=== PATIENT | male | born 1980 | race Hispanic/Latino ===

== ENCOUNTER → 2017-11-21 | Outpatient (CLI) | payer MEDICARE, OTHER | END | disposition home or self-care (01) | LOC: RAH 12:38 | PROVIDERS: ATTEND Urology | DX: N31.9 Neuromuscular dysfunction of bladder, unspecified (principal) | CPT/HCPCS: 76770 ==

== ENCOUNTER 2018-09-05 16:07 | Inpatient (IN) | payer MEDICARE ==
[~2018-09-05] VITALS: Ht 165.1 cm; Wt 95.0 kg
[2018-09-05 17:45] LABS: BASOPHILS % (AUTO) 0.7 % (0.0-5.0); EOSINOPHILS % (AUTO) 0.5 % (0.0-8.0); HEMATOCRIT 30.2 % (42-54); LYMPHOCYTES % (AUTO) 14.5 % (21.0-51.0); MEAN CORPUSCULAR HEMOGLOBIN 29.9 pg (27.0-33.0); MEAN CORPUSCULAR HGB CONC 34.2 g/dL (32.0-36.0); MEAN CORPUSCULAR VOLUME 87.4 fL (79-99); MONOCYTES % (AUTO) 9.2 % (3.0-13.0); NEUTROPHILS % (AUTO) 75.1 % (40.0-77.0); NUCLEATED RED BLOOD CELLS 0.1 % (0.0-0.19); PLATELET COUNT (AUTO) 222 K/uL (130-400); RED BLOOD CELL COUNT(AUTO) 3.45 MIL/uL (4.50-6.20); RED CELL DISTRIBUTION WIDTH 13.6 % (11.0-15.5); WHITE BLOOD COUNT (AUTO) 12.2 K/uL (4.8-10.8)
[2018-09-05 17:48] LABS: APPEARANCE,URINE Turbid (CLEAR); BILIRUBIN,URINE Negative (NEGATIVE); COLOR,URINE Yellow (YELLOW); GLUCOSE, URINE (UA) Negative (NEGATIVE); KETONES,URINE Trace mg/dL (NEGATIVE); LEUKOCYTE ESTERASE ,URINE Large (NEGATIVE); NITRATE,URINE Positive (NEGATIVE); OCCULT BLOOD,URINE Negative (NEGATIVE); PH,URINE >=9.0 (5.0-8.0); PROTEIN,URINE POS 1+ mg/dL (NEGATIVE)
[2018-09-05 17:52] LABS: CREATININE 0.8 mg/dL (0.5-1.5); POTASSIUM 3.6 mmol/L (3.5-5.1)
[2018-09-05 17:56] LABS: ALBUMIN 3.4 g/dL (3.5-5.0); BILIRUBIN,DIRECT 0.2 mg/dL (0.0-0.3); BILIRUBIN,TOTAL 0.6 mg/dL (0.2-1.0); TOTAL PROTEIN, SERUM 6.8 g/dL (6.0-8.3)
[2018-09-05] MEDS ORDERED: MORPHINE SULFATE 4 MG/1ML SYG IVP PRN (18:00)
[2018-09-05] MEDS ORDERED: ONDANSETRON HCL 4 MG/2 ML VIAL IVP PRN (18:00)
[2018-09-05] MEDS ORDERED: MORPHINE SULFATE 4 MG/1ML SYG ONE (18:01)
[2018-09-05] MEDS ORDERED: ONDANSETRON HCL 4 MG/2 ML VIAL ONE (18:01)
[2018-09-05 18:05] LABS: BACTERIA,URINE Many /HPF (None Seen); RBC,URINE None Seen /HPF (0-1); SQUAMOUS EPITHELIAL CELL,UR None Seen /HPF (0-2); TRIPLE PHOSPHATE CRYSTAL,UR Many /LPF (None Seen)
[2018-09-05] MEDS ORDERED: NITROGLYCERIN 0.4 MG SL TAB SL PRN (18:30)
[2018-09-05] MEDS ORDERED: ONDANSETRON HCL 4 MG/2 ML VIAL IV PRN (18:30)
[2018-09-05] MEDS ORDERED: ACETAMINOPHEN 325 MG TAB PO PRN ×2 (18:30)
[2018-09-05] MEDS ORDERED: SODIUM CHLORIDE 0.9% 1000ML 1,000 ML IV SCH (18:30)
[2018-09-05 19:02] LABS: B-TYPE NATRIURETIC PEPTIDE < 5 pg/mL (0-100); INR 0.9 (0.85-1.15); PROTHROMBIN TIME 9.5 SEC (9.6-11.6)
[2018-09-05 19:27] LABS: AMPHET/METH SCREEN,URINE NEGATIVE (NEGATIVE); BARBITURATE SCREEN, URINE NEGATIVE (NEGATIVE); BENZODIAZEPINES SCREEN,URINE NEGATIVE (NEGATIVE); CANNABINOID SCREEN,URINE NEGATIVE (NEGATIVE); COCAINE SCREEN,URINE NEGATIVE (NEGATIVE); OPIATE SCREEN,URINE NEGATIVE (NEGATIVE); PHENCYCLIDINE SCREEN,URINE NEGATIVE (NEGATIVE)
[2018-09-05 19:34] LABS: CRP QUANTITATIVE 233.5 mg/L (0.00-9.0); MAGNESIUM 1.8 mg/dL (1.80-2.40)
[2018-09-05] MEDS ORDERED: LEVOFLOXACIN 500 MG/D5W 100 ML 100 ML ONE (19:43)
[2018-09-05] MEDS ORDERED: SODIUM CHLORIDE 0.9% 1000ML 2,000 ML IV ONE (19:43)
[2018-09-05 20:45] VITALS: BP 117/64
--- NOTE | 2018-09-05 20:45 | NUR ---
ADMISSION. PT ADMITTED INTO ROOM 403, TRANSFERRED VIA STRETCHER. AWAKE, ALERT AND RESPONSIVE. C/O DISCOMFORT TO LT LEG BUT REFUSING PAIN MEDICATION AT THIS TIME. INFORMED PT ON PAIN MEDICATION ORDERS AND EDUCATED ON PAIN MANAGEMENT. CALL MUNOZ WITHIN REACH, BED IN LOWEST POSITION. Addendum: 09/05/18 at 2143 by MANNY FRANCO RN Amended: Links added.
[2018-09-05] MEDS ORDERED: LACT1CAP65 PO (21:49)
[2018-09-05] MEDS ORDERED: ASPI-555 PO (21:49)
[2018-09-05] MEDS ORDERED: ZOLP10TA2 PO (21:49)
[2018-09-05] MEDS ORDERED: FISH1CAP63 PO (21:49)
[2018-09-05] MEDS ORDERED: HYDR-4068 PO (21:49)
[2018-09-05] MEDS: SODIUM CHLORIDE 0.9% 1000ML 1,000 ML IV SCH (21:51)
[2018-09-05] MEDS: LEVOFLOXACIN 500 MG/D5W 100 ML 100 ML IV SCH (21:52)
[2018-09-05] MEDS: FAMOTIDINE 20MG TAB 20 MG TAB PO SCH (21:53)
[2018-09-05] MEDS: ZOLPIDEM TARTRATE 5 MG TAB PO PRN (21:53)
[2018-09-05] MEDS: MORPHINE SULFATE 2 MG/ML 1ML SYG IV PRN (22:24)
[2018-09-06] VITALS (7 sets, daily range): BP systolic 95–124; BP diastolic 49–65
[2018-09-06] MEDS: KETOROLAC TROMETHAMINE 15MG/ML IV PRN ×3 (00:41→20:46)
[2018-09-06] MEDS: MORPHINE SULFATE 2 MG/ML 1ML SYG IV PRN ×4 (03:21→23:15)
[2018-09-06] MEDS: SODIUM CHLORIDE 0.9% 1000ML 1,000 ML IV SCH (04:30)
[2018-09-06 04:40] LABS: HEMATOCRIT 26.6 % (42-54); MEAN CORPUSCULAR HEMOGLOBIN 30.7 pg (27.0-33.0); MEAN CORPUSCULAR HGB CONC 35.1 g/dL (32.0-36.0); MEAN CORPUSCULAR VOLUME 87.5 fL (79-99); PLATELET COUNT (AUTO) 202 K/uL (130-400); RED BLOOD CELL COUNT(AUTO) 3.04 MIL/uL (4.50-6.20); RED CELL DISTRIBUTION WIDTH 13.9 % (11.0-15.5); WHITE BLOOD COUNT (AUTO) 10.7 K/uL (4.8-10.8)
[2018-09-06 04:50] LABS: CREATININE 0.7 mg/dL (0.5-1.5); POTASSIUM 3.6 mmol/L (3.5-5.1)
[2018-09-06 04:52] LABS: BAND NEUTROPHILS % (MANUAL) 3 % (0-2); LYMPHOCYTES % (MANUAL) 42 % (22-44); MAN.DIFF COMMENT-IMPRESSION MANUAL DIFFERENTIAL; MONOCYTES % (MANUAL) 8 % (2-9); PLATELET MORPHOLOGY COMMENT ADEQUATE; SEGMENTED NEUTROPHILS % 47 % (40-70)
[2018-09-06] MEDS: FAMOTIDINE 20MG TAB 20 MG TAB PO SCH ×2 (07:48→20:47)
[2018-09-06] MEDS: ENOXAPARIN SODIUM 40 MG/0.4 ML SYRINGE SQ SCH (08:03)
--- NOTE | 2018-09-06 08:38 | NUR ---
SPECIALY HAS BEEN ORDERED HOUSE SUP AWARE PT AWARE
--- NOTE | 2018-09-06 14:00 | NUR ---
DR. QUINTANA ROUNDED ON PT SCHEDULE FOR SX TOMORROW NPO AFTER MIDNIGHT AWARE PT HAS BEEN CLEARED BY HOSPITALIST GROUP
--- NOTE | 2018-09-06 17:45 | NUR ---
PT AWARE SPECIALTY BED ARRIVED BUT REFUSES TO BE TRANSFERRED TO SUCH BED DOESTN WANT TO BE BOTHER AT THE MOMENT
--- NOTE | 2018-09-06 18:00 | NUR ---
INITIAL: Met with pt this afternoon to discuss dcp. Pt states that he lives w his mom. Prior to admission was independent w transfers to . He mentions that he requires assistance w ADLs. Has provider services 26hr/week. Pt mentions that he has at home a hospital bed and air mattress. Pt mentions that he anticipates needing rehab post op and is interested [facility]. Discussed also SNF as an option. Per pt he will discuss further w Md post op. Cm to continue to follow and wait for Md recommendations. Addendum: 09/06/18 at 1803 by DARLIN ROMANO Amended: Links added.
[2018-09-06] MEDS: LEVOFLOXACIN 500 MG/D5W 100 ML 100 ML IV SCH (19:55)
[2018-09-06] MEDS: ZOLPIDEM TARTRATE 5 MG TAB PO PRN (23:14)
[2018-09-07] VITALS (22 sets, daily range): BP systolic 89–176; BP diastolic 46–74
[2018-09-07] MEDS: SODIUM CHLORIDE 0.9% 1000ML 1,000 ML IV SCH ×4 (01:26→20:54)
[2018-09-07 05:15] LABS: HEMATOCRIT 25.4 % (42-54); MEAN CORPUSCULAR HEMOGLOBIN 30.4 pg (27.0-33.0); MEAN CORPUSCULAR VOLUME 87.1 fL (79-99); PLATELET COUNT (AUTO) 229 K/uL (130-400); RED BLOOD CELL COUNT(AUTO) 2.92 MIL/uL (4.50-6.20); RED CELL DISTRIBUTION WIDTH 13.7 % (11.0-15.5); WHITE BLOOD COUNT (AUTO) 8.4 K/uL (4.8-10.8)
[2018-09-07 05:21] LABS: CREATININE 0.7 mg/dL (0.5-1.5); POTASSIUM 3.7 mmol/L (3.5-5.1)
[2018-09-07] MEDS ORDERED: DEXAMETHASONE SOD PHOSPHATE 10MG/ML 1ML VIAL ONE (07:55)
[2018-09-07] MEDS ORDERED: SUCCINYLCHOLINE 200MG/10ML SYR ONE (07:55)
[2018-09-07] MEDS ORDERED: LIDOCAINE PF 2% 5ML ABBOJECT ONE (07:55)
[2018-09-07] MEDS ORDERED: ONDANSETRON HCL 4 MG/2 ML VIAL ONE (07:55)
[2018-09-07] MEDS ORDERED: MIDAZOLAM HCL 1 MG/ML 2ML VIAL ONE ×2 (07:56→09:08)
[2018-09-07] MEDS ORDERED: NEOSTIGMINE 5MG/5ML SYR IV ONE ×2 (07:56→10:49)
[2018-09-07] MEDS ORDERED: FENTANYL CITRATE PF 50 MCG/1 ML 2ML VIAL ONE ×2 (07:56→08:10)
[2018-09-07] MEDS ORDERED: PROPOFOL 10 MG/ML 20ML VIAL IV ONE (07:56)
[2018-09-07] MEDS ORDERED: GLYCOPYRROLATE 1 MG/5 ML SYRINGE ONE ×3 (07:56→10:49)
[2018-09-07] MEDS ORDERED: ROCURONIUM 10MG/1ML SYR 10 MG/ML ML ONE (07:56)
--- NOTE | 2018-09-07 08:05 | NUR ---
PATIENT TO OR PATIENT TRANSFERRED TO OR FOR SCHEDULED PROCEDURE VIA STRETCHER.
[2018-09-07] MEDS ORDERED: LACTATED RINGERS 1000ML 1,000 ML IV ONE (08:09)
[2018-09-07] MEDS: ENOXAPARIN SODIUM 40 MG/0.4 ML SYRINGE SQ SCH (09:00)
[2018-09-07] MEDS: FAMOTIDINE 20MG TAB 20 MG TAB PO SCH ×2 (09:00→19:55)
[2018-09-07] MEDS: ASPIRIN 81 MG EC TAB PO SCH (09:00)
[2018-09-07] MEDS ORDERED: EPHEDRINE SULFATE 50 MG/ML AMPULE ONE (09:41)
[2018-09-07] MEDS ORDERED: CEFAZOLIN SODIUM 1 GM VIAL ONE (09:44)
[2018-09-07] MEDS ORDERED: TRANEXAMIC ACID 1000MG/10ML IV ONE (10:37)
[2018-09-07] MEDS ORDERED: DIPHENHYDRAMINE HCL 25 MG CAPSULE PO PRN (11:00)
[2018-09-07] MEDS ORDERED: LIDOCAINE HCL-MPF 1% 2ML VIAL IVP PRN (11:00)
[2018-09-07] MEDS ORDERED: POTASSIUM CHLORIDE 10% ELIXIR 20 MEQ/15 ML UDCUP PO PRN (11:00)
[2018-09-07] MEDS ORDERED: FERROUS FUMARATE 324 MG TABLET PO PRN (11:00)
[2018-09-07] MEDS ORDERED: CALCIUM CARBONATE 500 MG TABLET PO PRN (11:00)
[2018-09-07] MEDS: ACETAMINOPHEN EXTRA STRENGTH 500 MG TABLET PO SCH ×2 (11:00→19:55)
[2018-09-07] MEDS ORDERED: DiphenhydrAMINE HCL 50 MG/ML VIAL IVP PRN (11:00)
[2018-09-07] MEDS ORDERED: POTASSIUM CHLORIDE 20MEQ/100ML 100 ML IV PRN (11:00)
[2018-09-07] MEDS ORDERED: POTASSIUM CHLORIDE 20 MEQ ERTAB PO PRN (11:00)
[2018-09-07] MEDS ORDERED: HYDROMORPHONE 1 MG/1 ML AMP ONE (11:33)
[2018-09-07] MEDS: PSYLLIUM SEED 1 EACH PACKET PO SCH (12:00)
[2018-09-07 12:03] LABS: HEMATOCRIT 23.2 % (42-54)
[2018-09-07] MEDS: CLINDAMYCIN 600 MG/D5% WATER 50 ML IV SCH ×2 (12:50→19:55)
[2018-09-07] MEDS: MORPHINE SULFATE 2 MG/ML 1ML SYG IV PRN ×2 (12:50→16:47)
[2018-09-07] MEDS ORDERED: CLINDAMYCIN 600 MG/D5% WATER 50 ML IV ONE (19:45)
[2018-09-07] MEDS: LEVOFLOXACIN 500 MG/D5W 100 ML 100 ML IV SCH (19:55)
--- NOTE | 2018-09-07 20:00 | NUR ---
post blood transfusion Patient completed blood transfusion, no adverse reactions noted. Vitals stable. Afebrile. Tolerated blood transfusion well. Resp even and unlabored. No SOB noted. No nausea or vomiting noted. Medicated as per [place] for complaints of upper shoulder pain. Patient states it is chronic. Patient wanting Morphine but at this time Dressing to left hip dry and intact. No complaints of dysuria voiced at this time. Lutz catheter patent draining cloudy yellow urine to BSD. No signs of distress noted at this time. Patient on a specialty bed. Side rails up x3. Call light within reach. Will continue to be observed. Addendum: 09/07/18 at 2121 by CRISTINE DONALD RN RN Amended: Links added.
[2018-09-07] MEDS: KETOROLAC TROMETHAMINE 15MG/ML IV PRN (20:29)
[2018-09-07] MEDS: ZOLPIDEM TARTRATE 5 MG TAB PO PRN (23:53)
--- NOTE | 2018-09-08 | NUR ---
ROUNDS PATIENT AWAKE AND ALERT. NO COMPLAINTS OF PAIN VOICED AT THIS TIME. VITALS STABLE. AFEBRILE. TOLERATING IVF WELL. NO NAUSEA OR VOMITING NOTED. MEDICATED FOR INSOMNIA WITH AMBIEN 10MG PO. RESP EVEN AND UNLABORED. NO SOB NOTED. REPOSITIONED FOR COMFORT. SIDE RAILS UP X3. NO SIGNS OF DISTRESS NOTED. CALL LIGHT WITHIN REACH, WILL CONTINUE TO BE OBSERVED. Addendum: 09/08/18 at 0029 by CRISTINE DONALD RN RN Amended: Links added.
[2018-09-08] MEDS: ACETAMINOPHEN EXTRA STRENGTH 500 MG TABLET PO SCH ×4 (03:00→18:42)
[2018-09-08 03:23] VITALS: BP 87/50
[2018-09-08 04:21] LABS: HEMATOCRIT 24.8 % (42-54); MEAN CORPUSCULAR HEMOGLOBIN 30.3 pg (27.0-33.0); MEAN CORPUSCULAR HGB CONC 34.6 g/dL (32.0-36.0); MEAN CORPUSCULAR VOLUME 87.5 fL (79-99); PLATELET COUNT (AUTO) 245 K/uL (130-400); RED BLOOD CELL COUNT(AUTO) 2.84 MIL/uL (4.50-6.20); RED CELL DISTRIBUTION WIDTH 14.5 % (11.0-15.5)
[2018-09-08 04:46] LABS: CREATININE 0.7 mg/dL (0.5-1.5); POTASSIUM 3.8 mmol/L (3.5-5.1)
[2018-09-08] MEDS: MORPHINE SULFATE 2 MG/ML 1ML SYG IV PRN ×4 (05:27→18:05)
[2018-09-08] MEDS: SODIUM CHLORIDE 0.9% 1000ML 1,000 ML IV SCH (06:54)
[2018-09-08 07:00] VITALS: BP 103/55
[2018-09-08] MEDS: FAMOTIDINE 20MG TAB 20 MG TAB PO SCH ×2 (08:49→19:51)
[2018-09-08] MEDS: ASPIRIN 81 MG EC TAB PO SCH (08:49)
[2018-09-08] MEDS: ENOXAPARIN SODIUM 40 MG/0.4 ML SYRINGE SQ SCH (08:50)
[2018-09-08] MEDS: POLYETHYLENE GLYCOL 3350 17 GM POWD.PACK PO SCH (09:00)
[2018-09-08 11:00] VITALS: BP 106/55
[2018-09-08] MEDS: PSYLLIUM SEED 1 EACH PACKET PO SCH (12:00)
[2018-09-08 16:00] VITALS: BP 105/51
--- NOTE | 2018-09-08 17:13 | NUR ---
CM Note: [facility] pending acceptance CM met with pt discussed rec for short term placement rehab, pt is agreeable, JOSE signed for [facility]. Faxed order, clinicals, and pasrr. Spoke to [place] blanchard/Anthony, will come eval pt. Pt pending acceptance. EMS filled out and faxed for tomorrow, primary nurse to call [facility] once pt ready to DC. Primary nurse aware. CM to cont to follow up.
[2018-09-08] MEDS: LEVOFLOXACIN 500 MG/D5W 100 ML 100 ML IV SCH (18:38)
[2018-09-08 19:51] VITALS: BP 112/55
[2018-09-08 23:44] VITALS: BP 99/62
[2018-09-09] MEDS: ZOLPIDEM TARTRATE 5 MG TAB PO PRN (00:48)
[2018-09-09] MEDS: MORPHINE SULFATE 2 MG/ML 1ML SYG IV PRN ×2 (00:48→08:22)
[2018-09-09 04:00] VITALS: BP 107/59
[2018-09-09 05:32] LABS: HEMATOCRIT 24.8 % (42-54); MEAN CORPUSCULAR HEMOGLOBIN 29.4 pg (27.0-33.0); MEAN CORPUSCULAR HGB CONC 33.8 g/dL (32.0-36.0); MEAN CORPUSCULAR VOLUME 87.1 fL (79-99); PLATELET COUNT (AUTO) 285 K/uL (130-400); RED BLOOD CELL COUNT(AUTO) 2.85 MIL/uL (4.50-6.20); RED CELL DISTRIBUTION WIDTH 14.4 % (11.0-15.5); WHITE BLOOD COUNT (AUTO) 8.8 K/uL (4.8-10.8)
[2018-09-09 05:45] LABS: CREATININE 0.6 mg/dL (0.5-1.5); POTASSIUM 3.7 mmol/L (3.5-5.1)
[2018-09-09 08:11] VITALS: BP 119/63
[2018-09-09] MEDS: ASPIRIN 81 MG EC TAB PO SCH (08:23)
[2018-09-09] MEDS: FAMOTIDINE 20MG TAB 20 MG TAB PO SCH (08:23)
[2018-09-09] MEDS: POLYETHYLENE GLYCOL 3350 17 GM POWD.PACK PO SCH ×3 (08:23→09:00)
[2018-09-09] MEDS: ENOXAPARIN SODIUM 40 MG/0.4 ML SYRINGE SQ SCH (08:23)
--- NOTE | 2018-09-09 10:36 | NUR ---
CM Note: [facility] pending acceptance Spoke to [place] blanchard/Anthony, stated on her way to see pt this morning. Pt pending acceptance. EMS arranged and faxed for today, primary nurse to call [facility] once pt ready to DC. Primary nurse aware. CM to cont to follow up.
[2018-09-09] MEDS ORDERED: BISACODYL 5 MG TABLET.DR PO PRN (11:00)
--- NOTE | 2018-09-09 11:00 | NUR ---
CM Note: [facility] acceptance Spoke to [place] w/[facility]. Pt has acceptance. EMS arranged and faxed, primary nurse to call [facility] once ready to DC. Primary nurse aware. CM to cont to follow up.
[2018-09-09] MEDS ORDERED: CEFD300C3 PO (11:10)
[2018-09-09 11:11] VITALS: BP 115/57
[2018-09-09] MEDS ORDERED: LEVO500T89 PO (11:12)
[2018-09-09] MEDS: ACETAMINOPHEN EXTRA STRENGTH 500 MG TABLET PO SCH (11:34)
[2018-09-09] MEDS: PSYLLIUM SEED 1 EACH PACKET PO SCH (11:36)
[2018-09-09] MEDS: KETOROLAC TROMETHAMINE 15MG/ML IV PRN (14:28)
--- NOTE | 2018-09-09 14:35 | NUR ---
FULL [facility] REPORT GIVEN TO NURSE PORTER FROM [facility] D/C EDUCATION W TEACH BACK TO PT SUCCESSFULLY PT DENIES SOB OR CHEST PAIN IV REMOVED, CATHETER INTACT SX SITE INTACT DRY , NO SIGNS OF BLEEDING OR INFECTION NOTED
--- NOTE | 2018-09-09 14:35 | NUR ---
EMS PAGED FOR THIS PATIENT STATED THEY WILL COME
[2018-09-10] MEDS ORDERED: BISACODYL 10 MG SUPP.RECT RC PRN (11:00)
== END 2018-09-09 16:51 | DRG 981 ==
LOC: EDH 16:07 → EDHIP 17:29 → 4AH 20:27
PROVIDERS: ADMIT Hospitalist; ATTEND Hospitalist
PROC: 0QS704Z Reposition Left Upper Femur with Internal Fixation Device, Open Approach (ICD-10-PCS; principal; 2018-09-07 08:55)
PROC: 30233N1 Transfusion of Nonautologous Red Blood Cells into Peripheral Vein, Percutaneous Approach (ICD-10-PCS; 2018-09-07 08:55)
DX: T83.511A Infection and inflammatory reaction due to indwelling urethral catheter, initial encounter (principal); A41.9 Sepsis, unspecified organism; S72.22XA Displaced subtrochanteric fracture of left femur, initial encounter for closed fracture; G82.50 Quadriplegia, unspecified; E87.1 Hypo-osmolality and hyponatremia; N39.0 Urinary tract infection, site not specified; E66.9 Obesity, unspecified; Y84.6 Urinary catheterization as the cause of abnormal reaction of the patient, or of later complication, without mention of misadventure at the time of the procedure; L89.90 Pressure ulcer of unspecified site, unspecified stage; W05.0XXA Fall from non-moving wheelchair, initial encounter; G89.29 Other chronic pain; B96.4 Proteus (mirabilis) (morganii) as the cause of diseases classified elsewhere; Z74.01 Bed confinement status; Z68.34 Body mass index [BMI] 34.0-34.9, adult; Z99.3 Dependence on wheelchair; Z88.8 Allergy status to other drugs, medicaments and biological substances; Y93.89 Activity, other specified; Y99.8 Other external cause status; Y92.009 Unspecified place in unspecified non-institutional (private) residence as the place of occurrence of the external cause
CPT/HCPCS: 36415; 36430; 71045; 73030; 73552; 80048; 80076; 80305; 81001; 82550; 83605; 83735; 83880; 84145; 84443; 84484; 85014; 85018; 85025; 85027; 85610; 85730; 86140; 86850; 86900; 86901; 86922; 87040; 87077; 87088; 87186; 93005; G0378; J0330; J0690; J1100; J1170; J1650; J1885; J1956; J2001; J2250; J2270; J2405; J2704; J2710; J3010; J3490; J7030; J7120; P9016